=== PATIENT | male | born 1980 | race Caucasian/White ===

== ENCOUNTER 2017-12-25 12:00 | Emergency (ER) | payer OTHER ==
[~2017-12-25] VITALS: Ht 193 cm; Wt 106.7 kg
[~2017-12-25 12:00] MED LIST: CLINDAMYCIN HC300 MG PO; CYCLOBENZAPRINE10 MG PO; IBUPROFEN200 MG PO; KEFLEX500 MG PO; LOVASTATIN10 MG PO; NORCO 5-325 TA1 EACH PO; PENICILLIN V P500 MG PO; ZESTORETIC 10-121 E1 PO
== END 2017-12-25 12:35 | disposition home or self-care (01) ==
LOC: ED 12:00
DX: R11.10 Vomiting, unspecified (principal); R52 Pain, unspecified; F17.200 Nicotine dependence, unspecified, uncomplicated

== ENCOUNTER 2018-05-13 09:35 | Emergency (ER) | payer MEDICAID ==
[~2018-05-13] VITALS: Ht 193 cm; Wt 102.2 kg
[2018-05-13] MEDS ORDERED: CYCLOBENZAPRINE10 MG PO (10:46)
== END 2018-05-13 10:51 | disposition home or self-care (01) ==
LOC: ED 09:35
DX: M54.6 Pain in thoracic spine (principal); I10 Essential (primary) hypertension; F17.200 Nicotine dependence, unspecified, uncomplicated; Z79.899 Other long term (current) drug therapy
CPT/HCPCS: 99283

== ENCOUNTER 2022-08-23 11:24 | Emergency (ER) | payer OTHER ==
[~2022-08-23] VITALS: Ht 193 cm; Wt 102.2 kg
--- NOTE | 2022-08-25 20:33 | EKG ---
[facility] [address] [facility] [place] [address] Signed Normal sinus rhythm Nonspecific T wave abnormality Abnormal ECG No previous ECGs available Confirmed by Pedro Pablo Vilchis MD () on 08/25/2022 8:33:07 PM Electronically Signed By: PEDRO PABLO VILCHIS MD 08/25/222032 PATIENT NAME: MELLO BELLE Electrocardiogram DATE OF : 82 PHYSICIAN: PEDRO PABLO VILCHIS MD REPORT #: [id number] REPORT IS CONFIDENTIAL AND NOT TO BE RELEASED WITHOUT AUTHORIZATION
== END 2022-08-23 12:46 | disposition home or self-care (01) ==
LOC: ED 11:24
DX: G83.84 Todd's paralysis (postepileptic) (principal); F10.239 Alcohol dependence with withdrawal, unspecified; R56.9 Unspecified convulsions; I10 Essential (primary) hypertension; F17.200 Nicotine dependence, unspecified, uncomplicated; Y90.8 Blood alcohol level of 240 mg/100 ml or more
CPT/HCPCS: 36415; 70450; 71045; 80053; 85025; 85610; 85730; 93005; 93010; 99285-25; G0480

== ENCOUNTER 2023-04-17 11:07 | Emergency (ER) | payer OTHER ==
[~2023-04-17] VITALS: Ht 193 cm; Wt 101.0 kg
[2023-04-17 13:50] VITALS: BP 169/100
--- NOTE | 2023-04-18 13:10 | EKG ---
[facility] [address] [facility] [place], [place] [address] Signed Sinus tachycardia Prolonged QT Abnormal ECG When compared with ECG of 23-AUG-2022 12:03, Nonspecific T wave abnormality, improved in Lateral leads QT has lengthened Confirmed by ROSIE ANDERSON MD ([id number]) on 04/18/2023 1:10:40 PM Electronically Signed By: ROSIE ANDERSON 04/18/23 1310 PATIENT NAME: BARBRAMELLO Electrocardiogram DATE OF : 82 PHYSICIAN: ROSIE ANDERSON REPORT #: [id number] REPORT IS CONFIDENTIAL AND NOT TO BE RELEASED WITHOUT AUTHORIZATION
== END 2023-04-17 13:40 | disposition home or self-care (01) ==
LOC: ED 11:07
DX: F10.129 Alcohol abuse with intoxication, unspecified (principal); G45.9 Transient cerebral ischemic attack, unspecified; G83.84 Todd's paralysis (postepileptic); I10 Essential (primary) hypertension; F17.200 Nicotine dependence, unspecified, uncomplicated
CPT/HCPCS: 36415; 70450; 70496; 70498; 80053; 85025; 85060; 85610; 85730; 93005; 93010; G0480; J3411; J7030; Q9967